=== PATIENT | female | born 1980 | race Caucasian/White ===

== ENCOUNTER 2021-12-01 09:24 | Inpatient (IN) | payer OTHER ==
[~2021-12-01] VITALS: Ht 165.1 cm; Wt 97.3 kg
[~2021-12-01 09:24] MED LIST: DIPATR PO; Naprosyn500 MG PO; Ultram50 MG PO; Zofran Odt4 MG SL
[2021-12-01 10:45] LABS: BASOPHILS ABSOLUTE AUTO 0.05 K/mm3 (0.00-0.23); BASOPHILS PERCENT AUTO 1 % (0-2); EOSINOPHILS ABSOLUTE AUTO 0.63 K/mm3 (0.00-0.68); EOSINOPHILS PERCENT AUTO 6 % (0-6); Hematocrit 37.2 % (33.0-51.0); Hemoglobin 12.1 g/dL (11.5-16.0); IMMATURE GRAN ABSOLUTE AUTO 0.03 K/mm3 (0.00-0.10); IMMATURE GRAN PERCENT AUTO 0 % (0-1); LYMPHOCYTES ABSOLUTE AUTO 2.19 K/mm3 (0.84-5.20); LYMPHOCYTES PERCENT AUTO 22 % (21-46); MONOCYTES ABSOLUTE AUTO 0.99 K/mm3 (0.16-1.47); MONOCYTES PERCENT AUTO 10 % (4-13); Mean Corpuscular HGB 29.1 pg (26.0-34.0); Mean Corpuscular HGB Conc 32.5 g/dL (31.5-36.5); Mean Corpuscular Volume 89 fL (80-100); Mean Platelet Volume 10.6 fL (9.1-12.4); NEUTROPHILS PERCENT AUTO 61 % (41-73); Platelet Count 250 K/mm3 (150-400); RDW Coefficient Variation 11.9 % (11.7-14.2); RDW Standard Deviation 38.6 fL (35.1-46.3); Red Blood Cell Count 4.16 M/mm3 (3.80-5.20); White Blood Cell Count 9.99 K/mm3 (4.00-11.30)
[2021-12-01 11:22] LABS: Anion Gap 3 mmol/L (6-16); Blood Urea Nitrogen 15 mg/dL (8-24); Bun/Creatinine Ratio 28.1 (12.0-20.0); CO2, Blood 28 mmol/L (21-32); Calcium, Blood 8.5 mg/dL (8.5-10.1); Chloride, Blood 106 mmol/L (98-108); Creatinine, Blood 0.53 mg/dL (0.40-1.00); Glomerular Filtration Rate >60 (60-); Glucose, Blood 127 mg/dL (70-99); Potassium, Blood 4.3 mmol/L (3.5-5.5); Sodium, Blood 137 mmol/L (136-145)
--- NOTE | 2021-12-01 17:37 | NUR ---
SHIFT SUMMARY THIS RN ASSUMED CARE OF PATIENT AT 1420 THIS SHIFT. PATIENT IS ALERT AND ORIENTED X4, PLEASANT AND COOPERATIVE WITH CARE. PATIENT IS CURRENTLY NPO. PATIENT'S RIGHT HAND AND PINKY ARE PRETTY SWOLLEN. PATIENT WILL UNDERGO DEBRIDEMENT THIS EVENING. PAIN MEDS GIVEN PER MAR. NO DISTRESS NOTED AT THIS TIME. BED IN LOWEST POSITION, CALL LIGHT WITHIN REACH.
--- NOTE | 2021-12-01 21:11 | NUR ---
12/01/212110 Car Lopez PT ON SCHEDULED ANTIBIOTICS
--- NOTE | 2021-12-02 03:19 | NUR ---
shift summary 41 yr f admitted on 12/01/21 for a right hand infection. full code. PT HAD SURGERY TODAY FOR I&O OF INFECTED FINGER ON RIGHT HAND. SHE TOLERATED THE PROCEDURE WELL BUT C/O THROBBING, ACHING PAIN AT THE INCISION SITE. PAIN MEDS GIVEN PER EMAR. AFTER SURGERY SHE HAD A SNACK OF SANDWHICH, CHEESE AND CRACKERS, AND ICE CREAM WHICH SHE TOLERATED WELL. SHE IS PLEASANT AND COOPERATIVE AND FULLY INDEPENDANT IN THE ROOM.
[2021-12-02 05:34] LABS: BASOPHILS ABSOLUTE AUTO 0.02 K/mm3 (0.00-0.23); BASOPHILS PERCENT AUTO 0 % (0-2); EOSINOPHILS ABSOLUTE AUTO 0.01 K/mm3 (0.00-0.68); EOSINOPHILS PERCENT AUTO 0 % (0-6); Hematocrit 40.4 % (33.0-51.0); Hemoglobin 12.7 g/dL (11.5-16.0); IMMATURE GRAN ABSOLUTE AUTO 0.02 K/mm3 (0.00-0.10); IMMATURE GRAN PERCENT AUTO 0 % (0-1); LYMPHOCYTES ABSOLUTE AUTO 0.87 K/mm3 (0.84-5.20); LYMPHOCYTES PERCENT AUTO 13 % (21-46); MONOCYTES ABSOLUTE AUTO 0.18 K/mm3 (0.16-1.47); MONOCYTES PERCENT AUTO 3 % (4-13); Mean Corpuscular HGB 28.2 pg (26.0-34.0); Mean Corpuscular HGB Conc 31.4 g/dL (31.5-36.5); Mean Corpuscular Volume 90 fL (80-100); Mean Platelet Volume 10.6 fL (9.1-12.4); NEUTROPHILS ABSOLUTE AUTO 5.42 K/mm3 (1.96-9.15); NEUTROPHILS PERCENT AUTO 83 % (41-73); Platelet Count 267 K/mm3 (150-400); RDW Coefficient Variation 11.7 % (11.7-14.2); RDW Standard Deviation 38.5 fL (35.1-46.3); White Blood Cell Count 6.52 K/mm3 (4.00-11.30)
[2021-12-02 06:15] LABS: Alanine Aminotransfer (ALT/SGP 23 U/L (12-78); Albumin, Blood 3.2 g/dL (3.4-5.0); Albumin/Globulin Ratio 0.9 (0.8-1.8); Alk Phos 52 U/L (50-136); Anion Gap 6 mmol/L (6-16); Aspartate Aminotrans (AST/SGOT 13 U/L (12-37); Bilirubin, Total 0.3 mg/dL (0.1-1.0); Blood Urea Nitrogen 17 mg/dL (8-24); Bun/Creatinine Ratio 29.6 (12.0-20.0); CO2, Blood 25 mmol/L (21-32); Calcium, Blood 8.7 mg/dL (8.5-10.1); Chloride, Blood 104 mmol/L (98-108); Creatinine, Blood 0.57 mg/dL (0.40-1.00); Globulin, Blood 3.4 g/dL (2.2-4.0); Glomerular Filtration Rate >60 (60-); Glucose, Blood 167 mg/dL (70-99); Potassium, Blood 4.2 mmol/L (3.5-5.5); Sodium, Blood 135 mmol/L (136-145); Total Protein, Blood 6.6 g/dL (6.4-8.2)
--- NOTE | 2021-12-02 16:44 | NUR ---
SHIFT SUMMARY PATIENT ALERT AND ORIENTED X4, PLEASANT AND COOPERATIVE WITH CARE. PATIENT HAS HAD ABX THIS SHIFT. MEDICATED X2 FOR THROBBING PAIN IN HAND. DRESSING INTACT. PATIENT IS INDEPENDENT TO THE BATHROOM. IV'S IN LEFT AND RIGHT FOREARM. REGULAR DIET. NO ACUTE CHANGES THIS SHIFT. BED IN LOWEST POSITION, CALL LIGHT WITHIN REACH. PATIENT MAY POSSIBLY DISCHARGE TOMORROW.
[2021-12-03 01:30] LABS: BASOPHILS ABSOLUTE AUTO 0.06 K/mm3 (0.00-0.23); BASOPHILS PERCENT AUTO 1 % (0-2); EOSINOPHILS PERCENT AUTO 2 % (0-6); Hematocrit 37.1 % (33.0-51.0); IMMATURE GRAN ABSOLUTE AUTO 0.02 K/mm3 (0.00-0.10); IMMATURE GRAN PERCENT AUTO 0 % (0-1); LYMPHOCYTES ABSOLUTE AUTO 2.86 K/mm3 (0.84-5.20); LYMPHOCYTES PERCENT AUTO 32 % (21-46); MONOCYTES ABSOLUTE AUTO 0.93 K/mm3 (0.16-1.47); MONOCYTES PERCENT AUTO 11 % (4-13); Mean Corpuscular HGB 28.8 pg (26.0-34.0); Mean Corpuscular HGB Conc 32.3 g/dL (31.5-36.5); Mean Corpuscular Volume 89 fL (80-100); Mean Platelet Volume 10.5 fL (9.1-12.4); NEUTROPHILS ABSOLUTE AUTO 4.82 K/mm3 (1.96-9.15); NEUTROPHILS PERCENT AUTO 54 % (41-73); Platelet Count 253 K/mm3 (150-400); RDW Coefficient Variation 11.7 % (11.7-14.2); RDW Standard Deviation 37.2 fL (35.1-46.3); Red Blood Cell Count 4.17 M/mm3 (3.80-5.20); White Blood Cell Count 8.89 K/mm3 (4.00-11.30)
[2021-12-03 01:47] LABS: Anion Gap 4 mmol/L (6-16); Blood Urea Nitrogen 16 mg/dL (8-24); Bun/Creatinine Ratio 26.8 (12.0-20.0); CO2, Blood 28 mmol/L (21-32); Calcium, Blood 7.9 mg/dL (8.5-10.1); Chloride, Blood 108 mmol/L (98-108); Glomerular Filtration Rate >60 (60-); Glucose, Blood 115 mg/dL (70-99); Sodium, Blood 140 mmol/L (136-145); Vancomycin, Trough 8.1 ug/mL (5.0-10.0)
--- NOTE | 2021-12-03 05:12 | NUR ---
SHIFT SUMMARY 41 YR F ADMITTED ON 12/01/21 FOR A RIGHT HAND INFECTION. FULL CODE. PT C/O PAIN AND THROBBING IN RIGHT HAND AT SURGICAL SITE. PAIN MEDS GIVEN PER EMAR. PT STATES EFFECTIVE PAIN CONTROL. SHE IS INDEPENDANT IN THE ROOM AND FULLY COOPERATIVE IN HER CARE. ABX GIVEN PER EMAR. PT IS HOPING TO BE DISCHARGED TODAY.
[2021-12-03] MEDS ORDERED: SULTRIDS PO ×2 (13:50→13:52)
[2021-12-03] MEDS ORDERED: Percocet 5-3251 EACH (13:56)
[2021-12-03] MEDS ORDERED: Percocet 5-3251 EACH PO (13:58)
--- NOTE | 2021-12-03 15:50 | NUR ---
1415 PT DISCHARGED WITH INSTRUCTIONS. GIVEN WRITTEN RX FOR PERCOCET. MEDICATED FOR PAIN BEFORE DC. IV DC'D. TOLERATING FOOD AND FLUIDS. INSTRUCTED ON CARE OF R HAND WOUND AND FOLLOW UP APTS. WHEEL CHAIR OUTSIDE TO PRIVATE CAR.
== END 2021-12-03 14:13 | disposition home or self-care (01) | DRG 906 ==
LOC: ER 09:24 → MEDS 13:31
PROVIDERS: Emergency Medicine; Orthopaedic Surgery; Student in an Organized Health Care Education/Training Program; ADMIT Internal Medicine
PROC: 0L970ZZ Drainage of Right Hand Tendon, Open Approach (ICD-10-PCS; 2021-12-01)
PROC: 0JCJ0ZZ Extirpation of Matter from Right Hand Subcutaneous Tissue and Fascia, Open Approach (ICD-10-PCS; principal; 2021-12-01 18:00)
DX: S61.246A Puncture wound with foreign body of right little finger without damage to nail, initial encounter (principal); L03.011 Cellulitis of right finger; B95.62 Methicillin resistant Staphylococcus aureus infection as the cause of diseases classified elsewhere; F17.200 Nicotine dependence, unspecified, uncomplicated; Z90.49 Acquired absence of other specified parts of digestive tract; Z71.6 Tobacco abuse counseling; W26.8XXA Contact with other sharp object(s), not elsewhere classified, initial encounter
CPT/HCPCS: 36415; 73130; 73201; 80048; 80053; 80202; 85025; 85651; 86141; 87070; 87075; 87077; 87147; 87186; 87205; 96365; 96366; 96375; A9270; J0295; J0692; J1100; J1650; J1885; J2250; J2270; J2405; J2704; J3010; J3370; J7030; J7050; J7060; J7120; Q9967

== ENCOUNTER 2024-07-21 15:46 | Emergency (ER) | payer OTHER ==
[~2024-07-21] VITALS: Ht 165.1 cm; Wt 90.7 kg
[~2024-07-21 15:46] MED LIST changes: +AMOCLA875 PO; +HYDR1TAB94 PO; +Percocet 5-3251 EACH; +Percocet 5-3251 EACH PO; +SULTRIDS PO
[2024-07-21 15:57] VITALS: BP 157/97
[2024-07-21] MEDS ORDERED: HYDROcodone 5-APAP 325 TAB PO ONE (16:15)
[2024-07-21] MEDS ORDERED: Acetaminophen 325 MG TABLET PO ONE (16:15)
[2024-07-21] MEDS ORDERED: Norco 5-325 Ta1 EACH PO (16:25)
== END 2024-07-21 16:40 | disposition home or self-care (01) ==
LOC: ER 15:46
DX: T24.221A Burn of second degree of right knee, initial encounter (principal); X00.8XXA Other exposure to uncontrolled fire in building or structure, initial encounter; F17.200 Nicotine dependence, unspecified, uncomplicated; Z79.899 Other long term (current) drug therapy
CPT/HCPCS: 99283; A9270